=== PATIENT | male | born 2000 | race African-American/Black ===

== ENCOUNTER 2024-03-26 14:43 | Emergency (ER) | payer OTHER, SELFPAY ==
[2024-03-26 14:50] VITALS: BP 118/71; PULSE 98; RESP 20; TEMP 38; O2SAT 99
--- NOTE | 2024-03-26 15:02 | ED.URI ---
HPI - URI/Sore Throat General Chief Complaint: Upper Respiratory Infection Stated Complaint: Headache/Fever Time Seen by Provider: 03/26/24 15:00 Source: patient, RN notes reviewed and old records reviewed Mode of arrival: ambulatory Limitations: no limitations History of Present Illness HPI Narrative: 23 year old male presents to [facility] care with complaints of headache, fever, congestion, cough and body aches with sore throat since yesterday. Patient reports that he has carli running some fevers, has not taken any Tylenol today but had been taking some yesterday and the day before. Patient reports that he also has a bad tooth in his left upper wisdom tooth which is broken. Patient reports that he is suppose to work today but he has fever will need work note. MD elicited complaint: fever, cough, sore throat, rhinorrhea, nasal congestion and other (body aches) Onset (ago): day(s) (2) Pain scale (0-10): 8 Able to tolerate fluids by mouth: Yes Treatments prior to arrival: acetaminophen Related Data Allergies Allergy/AdvReac Type Severity Reaction Status Date / Time No Known Allergies Allergy Verified 03/26/24 15:09 Review of Systems Review of Systems: CONSTITUTIONAL: Reports malaise, chills, sweats, or fever. EYES: Denies visual changes, redness, or discharge. ENT: Reports rhinorrhea, congestion, sinus pain, otalgia and sore throat.some dental pain to broken wisdom tooth left upper tooth CARDIOVASCULAR: Denies chest pain, palpitations, or edema. RESPIRATORY: Reports cough.? Denies dyspnea. GASTROINTESTINAL: Denies abdominal pain, nausea, vomiting, diarrhea SKIN: Denies rash or itching. MUSCULOSKELETAL: Denies myalgia. NEUROLOGIC: Reports headache. All systems reviewed & are unremarkable except as noted in HPI and below PMFSH Social History Social History (Updated 03/28/24 @ 11:40 by Britt Sparks NP) Smoking status: Current every day smoker Tobacco type: e-cigarettes/vaping Alcohol intake: current Alcohol use details: social Substance use type: does not use Living arrangements: with family Gender identity (if verbalized by the patient): Male Comments At time of signature, agree with nursing past medical, surgical, social and family history. There is no relevant family history pertinent to the presenting complaint Exam Narrative: GENERAL: Well-appearing, well-nourished, and in no acute distress. HEAD: Normocephalic EYES: PERRLA, conjunctivae clear ENT: Nares clear, turbinates edematous and erythematous, clear discharge. Mucous membranes moist. TM pearly mccabe with dull light reflex bilaterally; no tragal tenderness. Oropharynx erythematous without lesions. Tonsils red enlarged and without exudate, no drooling, no hoarseness, no trismus, uvula midline.post nasal drainage noted. NECK: Supple. No lymphadenopathy CHEST: Clear to auscultation, breath sounds equal. No wheezing, rhonchi, rales, or stridor. No respiratory distress, speaks in full sentences.cough SAO2 99% on room air HEART: Regular rate and rhythm. No murmur heard. SKIN: Warm, dry, no rash. NEURO: Alert and oriented x3. PSYCH: Normal mood and affect Course Course Emergency Course: Patient is aware of diagnosis, understands and agrees to treatment plan.? Anticipatory guidance given.? Patient agrees to follow-up as directed and is aware of reasons to seek care at the emergency department. Portions of this record may have been created with voice recognition software Level of Care: Express Care Visit Vital Signs Vital signs: Vital Signs Temperature 38.0 C H 03/26/24 14:50 Pulse Rate 98 03/26/24 14:50 Respiratory Rate 03/26/24 14:50 Blood Pressure 118/71 03/26/24 14:50 Pulse Oximetry 99 03/26/24 14:50 Oxygen Delivery Room Air 03/26/24 14:50 Temperature 38.0 C H 03/26/24 14:50 Pulse Rate 98 03/26/24 14:50 Respiratory Rate 03/26/24 14:50 Blood Pressure 118/71 09/0
[2024-03-26 15:23] LABS: EDINFLUASCREEN Negative; EDINFLUBSCREEN Negative; EDSTREPNEGPOS1 Negative
== END 2024-03-26 15:22 | disposition home or self-care (01) ==
PROVIDERS: Emergency Provider Registered Nurse
DX: J03.90 Acute tonsillitis, unspecified (principal); Z20.822 Contact with and (suspected) exposure to COVID-19; F17.290 Nicotine dependence, other tobacco product, uncomplicated
CPT/HCPCS: 87081; 87426; 87804; 87880; 99203; G0463